=== PATIENT | female | born 1960 | race Caucasian/White ===

== ENCOUNTER 2022-01-16 10:11 | Outpatient (CLI) | payer BC, SELFPAY ==
[2022-01-16 18:59] LABS: Hematocrit 42.2 % (37.0-47.0); Hemoglobin 13.2 g/dL (12.0-15.0); Mean Corpuscular HGB Conc 31.3 g/dl (32-36); Mean Corpuscular Hemoglobin 29.1 pg (26-34); Mean Platelet Volume 12.2 fl (7.4-10.4); Platelet Count Result 233 k/mm3 (150-375); Red Blood Count 4.54 M/mm3 (4.2-5.4); Red Cell Distribution Width 14.7 % (11.5-14.5); White Blood Count 6.8 K/mm3 (4.5-10.0)
[2022-01-16 19:08] LABS: Alanine Aminotransferase 24 U/L (4-35); Albumin Level 4.2 g/dL (3.5-5.1); Alkaline Phosphatase 63 U/L (38-126); Anion Gap 4 mmol/L (8-16); Aspartate Amino Transferase 30 U/L (14-36); Bilirubin,Total 0.4 mg/dL (0.2-1.3); Blood Urea Nitrogen 21 mg/dL (7-17); Calcium 9.5 mg/dL (8.4-10.2); Carbon Dioxide 27 mmol/L (22-30); Chloride 107 mmol/L (98-107); Cholesterol 221 mg/dL (0-200); Estimated Glomerular Filt Rate > 60; Glucose 88 mg/dL (65-110); HDL Direct 47 mg/dL; Potassium 4.6 mmol/L (3.4-5.0); Sodium 138 mmol/L (137-145); Triglycerides 95 mg/dL (<150)
[2022-01-16 19:23] LABS: LDL Cholesterol Direct 141 mg/dL
[2022-01-16 20:18] LABS: Vitamin D 25 Hydroxy 91.6 ng/mL
[2022-01-16 20:30] LABS: Folic Acid > 20.0 ng/mL (2.76->20)
== END 2022-01-16 10:12 | disposition home or self-care (01) ==
PROVIDERS: PCP Family Medicine; Visit Provider Family Medicine
DX: Z00.00 Encounter for general adult medical examination without abnormal findings (principal); I10 Essential (primary) hypertension
CPT/HCPCS: 36415; 80053; 80061; 82306; 82607; 82746; 85027

== ENCOUNTER 2022-05-31 11:17 | Outpatient (CLI) | payer BC, SELFPAY ==
[2022-05-31 18:26] LABS: Appearance Urine Clear (Clear); Bilirubin Urine Negative (Negative); Color Urine Yellow (Yellow); Glucose Urine UA Negative (Negative); Ketones Urine Negative (Negative); Leukocyte Esterase Ur Negative LEU/UL (NEGATIVE); Nitrate Urine Negative (Negative); Protein Urine Negative (Negative); Urobilinogen Urine 0.2 mg/dL (<2.0)
[2022-05-31 18:31] LABS: Squamous Epithelial Cell Urine Rare /hpf (Few); WBC Urine 0-3 /hpf (0-3)
[2022-05-31 18:32] LABS: Add Urine Microscopic? YES; Blood Urine Trace-Intact (Negative)
== END 2022-05-31 11:18 | disposition home or self-care (01) ==
LOC: ANHBWCLAB 11:17
PROVIDERS: PCP Family Medicine; Visit Provider Family Medicine
DX: N30.90 Cystitis, unspecified without hematuria (principal)
CPT/HCPCS: 81001; 87086; 87088

== ENCOUNTER 2023-04-16 09:01 | Outpatient (CLI) | payer OTHER, SELFPAY ==
[2023-04-16 19:31] LABS: Hematocrit 43.3 % (37.0-47.0); Hemoglobin 13.3 g/dL (12.0-15.0); Mean Corpuscular HGB Conc 30.7 g/dl (32-36); Mean Corpuscular Hemoglobin 28.5 pg (26-34); Mean Corpuscular Volume 92.9 fl (80-100); Mean Platelet Volume 12.1 fl (7.4-10.4); Platelet Count Result 245 k/mm3 (150-375); Red Blood Count 4.66 M/mm3 (4.2-5.4); Red Cell Distribution Width 15.5 % (11.5-14.5); White Blood Count 7.4 K/mm3 (4.5-10.0)
[2023-04-16 19:55] LABS: Vitamin D 25 Hydroxy 71.7 ng/mL
[2023-04-16 20:41] LABS: Alanine Aminotransferase 36 U/L (6-35); Albumin Level 4.4 g/dL (3.5-5.1); Alkaline Phosphatase 61 U/L (38-126); Anion Gap 5 mmol/L (8-16); Aspartate Amino Transferase 54 U/L (14-36); Bilirubin,Total 0.5 mg/dL (0.2-1.3); Blood Urea Nitrogen 23 mg/dL (7-17); Calcium 9.5 mg/dL (8.4-10.2); Carbon Dioxide 32 mmol/L (22-30); Chloride 104 mmol/L (98-107); Cholesterol 243 mg/dL (0-200); Estimated Glomerular Filt Rate > 60; Glucose 88 mg/dL (65-110); HDL Direct 61 mg/dL; Potassium 4.2 mmol/L (3.4-5.0); Sodium 141 mmol/L (137-145); Triglycerides 98 mg/dL (<150)
[2023-04-16 20:52] LABS: LDL Cholesterol Direct 149 mg/dL
== END 2023-04-16 09:02 | disposition home or self-care (01) ==
LOC: ANHCATHLAB 09:04 → ANHBWCLAB 09:07
PROVIDERS: PCP Family Medicine; Visit Provider Family Medicine
DX: Z00.00 Encounter for general adult medical examination without abnormal findings (principal); I10 Essential (primary) hypertension; M81.0 Age-related osteoporosis without current pathological fracture; N30.90 Cystitis, unspecified without hematuria
CPT/HCPCS: 36415; 80053; 80061; 82306; 85027

== ENCOUNTER 2023-10-01 11:35 | Outpatient (CLI) | payer OTHER, SELFPAY ==
[2023-10-01 19:42] LABS: Hematocrit 40.3 % (37.0-47.0); Hemoglobin 12.7 g/dL (12.0-15.0); Mean Corpuscular HGB Conc 31.5 g/dl (32-36); Mean Corpuscular Hemoglobin 28.6 pg (26-34); Mean Corpuscular Volume 90.8 fl (80-100); Platelet Count Result 232 k/mm3 (150-375); Red Blood Count 4.44 M/mm3 (4.2-5.4); Red Cell Distribution Width 14.5 % (11.5-14.5); White Blood Count 7.3 K/mm3 (4.5-10.0)
[2023-10-01 20:26] LABS: Alanine Aminotransferase 24 U/L (6-35); Albumin Level 4.3 g/dL (3.5-5.1); Alkaline Phosphatase 69 U/L (38-126); Anion Gap 6 mmol/L (8-16); Aspartate Amino Transferase 30 U/L (14-36); Bilirubin,Total 0.4 mg/dL (0.2-1.3); Blood Urea Nitrogen 14 mg/dL (7-17); Calcium 9.5 mg/dL (8.4-10.2); Carbon Dioxide 28 mmol/L (22-30); Chloride 106 mmol/L (98-107); Estimated Glomerular Filt Rate > 60; Glucose 86 mg/dL (65-110); Potassium 4.1 mmol/L (3.4-5.0); Sodium 140 mmol/L (137-145)
[2023-10-01 20:27] LABS: Hepatitis B Surface Antigen Negative (Negative)
[2023-10-01 20:33] LABS: HAV RESULT Negative (Negative); Hepatitis B Core IgM Result Negative (Negative)
[2023-10-01 20:45] LABS: Hepatitis C Virus Antibody Negative (Negative)
== END 2023-10-01 11:36 | disposition home or self-care (01) ==
LOC: ANHBWCLAB 11:36
PROVIDERS: PCP Family Medicine; Visit Provider Family Medicine
DX: M81.0 Age-related osteoporosis without current pathological fracture (principal); R74.8 Abnormal levels of other serum enzymes; I10 Essential (primary) hypertension; Z00.00 Encounter for general adult medical examination without abnormal findings
CPT/HCPCS: 36415; 80053; 80074; 82248; 85027

== ENCOUNTER 2024-02-18 13:16 | Outpatient (CLI) | payer OTHER, SELFPAY ==
--- NOTE | ~2024-02-18 | XR_ITS ---
Clinical Indication: Dyspnea PA and lateral views of the chest: Comparison: None Findings: The lungs are clear, without evidence of focal consolidation or pleural effusion. Cardiome diastinal silhouette is within normal limits. Bones and soft tissues are unremarkable. Impression: Normal chest. Reviewed, dictated and finalized at location . Impression: Normal chest.
== END 2024-02-18 13:17 | disposition home or self-care (01) ==
LOC: ANHBWCIMG 13:18
PROVIDERS: PCP Family Medicine; Visit Provider Family Medicine
DX: R06.00 Dyspnea, unspecified (principal)
CPT/HCPCS: 36415; 71046; 84484

== ENCOUNTER 2024-02-18 13:26 | Outpatient (CLI) | payer OTHER, SELFPAY ==
[2024-02-18 19:48] LABS: Troponin I < 0.012 ng/mL (0.000-0.034)
== END 2024-02-18 13:27 | disposition home or self-care (01) ==
LOC: ANHBWCLAB 13:27
PROVIDERS: PCP Family Medicine; Visit Provider Family Medicine
DX: R25.2 Cramp and spasm (principal); R06.00 Dyspnea, unspecified
CPT/HCPCS: 36415; 84484

== ENCOUNTER 2025-08-01 07:58 | Outpatient (CLI) | payer OTHER, SELFPAY ==
--- NOTE | ~2025-08-01 | XR_ITS ---
EXAMINATION: XR hip BI 2V w AP pelvis, 08/01/2025 8:44 CDT HISTORY: M16.11 - Unilateral primary osteoarthritis, right hip COMPARISON: No comparisons available. Findings: No acute fracture or malalignment. Moderate to severe degenerative changes Soft tissues unremarkable. Impression: No acute fracture or malalignment. Reviewed, dictated and finalized at location P. Impression: No acute fracture or malalignment.
--- NOTE | ~2025-08-01 | CT_ITS ---
EXAMINATION: CT abdomen pelvis w con DATE: 08/01/2025 08:30 INDICATION: Abnormal findings on diagnostic imaging. TECHNIQUE: Computed tomography (CT) of the abdomen and pelvis was performed with 100 mL Omnipaque 350 intravenous contrast. Automated exposure control and iterative reconstruction technique were employed. The dose-length product was 466.43 mGy-cm. COMPARISON: None. FINDINGS: The visualized portions of the lung bases demonstrate mild atelectasis. No pleural effusion. The heart size is normal. No pericardial effusion. The liver, gallbladder, pancreas, and adrenal glands are normal. There is a 2.5 cm peripherally calcified hyperdense mass in the spleen. There is a 4 mm cyst in right kidney. There is a 2 mm stone in left kidney. The appendix is normal. There are no dilated loops of bowel. There are no pathologically enlarged lymph nodes. There is no free intraperitoneal fluid. There is severe right hip osteoarthritis. There is severe lower lumbar spondylosis. IMPRESSION: 1. 2.5 cm peripherally calcified hyperdense mass in the spleen. The differential diagnosis includes old hematoma, old infection, and chronic pseudoaneurysm. Comparison with noncontrast abdomen CT is recommended to exclude enhancement of the mass. Reviewed, dictated and finalized at location E. IMPRESSION: 1. 2.5 cm peripherally calcified hyperdense mass in the spleen. The differentia l diagnosis includes old hematoma, old infection, and chronic pseudoaneurysm. C omparison with noncontrast abdomen CT is recommended to exclude enhancement of the mass.
[2025-08-01 08:26] LABS: Estimated Glomerular Filt Rate > 60
== END 2025-08-01 07:59 | disposition home or self-care (01) ==
PROVIDERS: PCP Family Medicine; Visit Provider Nurse Practitioner Family
DX: R93.5 Abnormal findings on diagnostic imaging of other abdominal regions, including retroperitoneum (principal); K66.8 Other specified disorders of peritoneum; M16.11 Unilateral primary osteoarthritis, right hip
CPT/HCPCS: 73521; 74177; Q9967

== ENCOUNTER 2025-08-07 06:43 | Outpatient (CLI) | payer SELFPAY ==
--- NOTE | ~2025-08-07 | CT_ITS ---
EXAMINATION: CT abdomen wo adam, 08/07/2025 7:00 CDT HISTORY: R16.1 - Splenomegaly, not elsewhere classified COMPARISON: Comparison 08/01/2025. TECHNIQUE: CT scan of the abdomen was performed without contrast. One or more of the following dose reduction techniques were used: automated exposure control, adjustment of the mA and/or kV according to patient size, use of iterative reconstruction technique. Unless otherwise stated, incidental findings do not require dedicated follow up imaging FINDINGS: CT abdomen: LUNG BASES: The lung bases are clear. The visualized portions of the heart and pericardium are unremarkable. LIVER: Unremarkable, liver contours intact, no lesions. SPLEEN: The spleen is within normal limits for size, there is a large calcified splenic lesion measuring 2.4 x 2.5 cm.. KIDNEYS: Right Kidney: Unremarkable. No calculi. No hydronephrosis. Left Kidney: Left kidney lower pole 2 mm calculus, no hydronephrosis. ADRENAL GLANDS: Unremarkable. PANCREAS: Unremarkable. GALLBLADDER/BILIARY: Unremarkable. No biliary dilatation. STOMACH AND ESOPHAGUS: Visualized stomach and esophagus within normal limits. BOWEL/MESENTERY: Moderate fecal content, no colitis or diverticulitis. Mesentery and small bowel normal. Appendix normal. ADENOPATHY/RETROPERITONEUM: No lymphadenopathy. AORTA/VASCULATURE: Normal caliber aorta. FREE FLUID OR FREE AIR: None. VISUALIZED PELVIS: Unremarkable. OSSEOUS STRUCTURES: No acute osseous abnormality.No suspicious lesions. OVERLYING SOFT TISSUES: Unremarkable. IMPRESSION: 1. Nonspecific calcified splenic lesion possible calcified granuloma or hemangioma. Follow-up suggested to assess as clinically warranted Reviewed, dictated and finalized at location P. IMPRESSION: 1. Nonspecific calcified splenic lesion possible calcified granuloma or hemangi violeta. Follow-up suggested to assess as clinically warranted
--- OUTSIDE RECORDS SUMMARY | 2025-08-07 06:56 | XMS_ITS | Clinical Summary ---
Author Organization [facility] Address [address] [place] [address] Care Team Providers Care Aquatic Physiotherapist Name Role Phone Carlos Eduardo Jesus MD Primary Care Provider [phone] Carlos Eduardo Jesus MD Unavailable [phone] Allergies No known active allergies Medications diphenhydrAMINE (diphenhydrAMIN E) 25 mg capsule Take 1 tablet/capsu le (25 mg total) by mouth every 6 (six) hours as needed for itching 30 capsule 03/16/2019 Active Active Problems Problem Noted Date Diagnosed Date Encounter for screening colonoscopy 12/01/2019 Overview (12/01/2019): Added automatically from request for surgery [id number] History of colon polyps 12/01/2019 Overview (12/01/2019): Added automatically from request for surgery [id number] Pharyngitis 04/09/2015 Overview (01/18/2017): Pharyngitis Immunizations Immunization Administration Dates Next Due Influenza, Split 07/16/2013 Influenza, Trivalent, IM (MDV) 08/30/2011 Surgical History Surgery Date Site/Laterality Comments OTHER SURGICAL HISTORY 10/15/1973 - 10/14/1974 strabismus: ocular muscle surgery OTHER SURGICAL HISTORY 10/15/2004 - 10/14/2005 myopia: lasik POLYPECTOMY COLONOSCOPY 01/05/2017 Medical History Medical History Date Comments Hx Other Medical strabismus Hx Other Medical myopia Hx Other Medical Colon polyp Family History Medical History Relation Name Comments Coronary artery disease Father Brianna nary artery disease, premature; Diabetes type II Father Diabetes -T ype II; Coronary artery disease Mother Brianna nary artery disease; Breast cancer Sister Nadya Relation Name Status Comments Father Mother Sister Nadya Alive Social History Tobacco Use Types Packs/Day Years Used Date Smoking Tobacco: Former Smokeless Tobacco: Never Alcohol Use Standard Drinks/Week Comments No 0 (1 standard drink = 0.6 oz pur e alcohol) Comments No Sex and Gender Information Value Date Recorded Sex Assigned at Not on file Legal Sex Female 12:45 AM FOOD COUNSELOR Gender Identity Not on file Sexual Orientation Not on file Obstetrics History Para Term AB IAB SAB Ectopic Multiple Livin g Live Births 2 2 2 Date Outcome GA Total Labor Labor/2nd/3rd Weight Sex Type Anes PTL Jasmine A1 A5 Name Clin Term Term Last Filed Vital Signs Vital Sign Reading Time Taken Comments Blood Pressure 166/79 03/22/2020 10:00 AM CDT Pulse 75 03/22/2020 10:00 AM CDT Temperature 36.6 C (97.8 F) 03/22/2020 10:00 AM CDT Respiratory Rate 20 03/22/2020 10:00 AM CDT Oxygen Saturation 100% 03/22/2020 10:00 AM CDT Inhaled Oxygen Concentration - - Weight 73.5 kg (162 lb) 03/22/2020 7:48 AM CDT Height 162.6 cm (5' 4) 03/22/2020 7:48 AM CDT Body Mass Index 27.81 03/22/2020 7:48 AM CDT Plan of Treatment Health Maintenance Due Date Last Done Comments Cervical Cancer Screening 1960 Depression Screening 1960 Hepatitis C Screening 1960 DTaP/Tdap/Td Vaccine (1 - Tdap) 1972 Hepatitis B Screening 1979 Regular Well Visit/Exam 18-64 1979 Zoster Vaccine (2 of 3) 03/02/2022 01/05/2022 Breast Cancer Screening-Mammogram 09/12/2024 09/12/2023, 07/26/2022, 12/25/2019, Additional history exists Influenza Vaccine (#1) 2025 07/16/2013, 2010 Colon Cancer Screening-Colonoscopy 03/22/2030 03/22/2020, 01/05/2017, 12/13/2013 Colon Cancer Screening-CT Colonography Discontinued 03/22/2020, 01/05/2017, 12/13/2013 Colon Cancer Screening-DNA Stool Discontinued 03/22/2020, 01/05/2017, 12/13/2013 Colon Cancer Screening-FIT Discontinued 03/22, 01/05/2017, 12/13/2013 Colon Cancer Screening-Sigmoidoscopy Discontinued 03/22/2020, 01/05/2017, 12/13/2013 Pneumococcal vaccine <65 Aged Out No longer eligible based on patient's age to complete this topic Procedures Procedure Name Priority Date/Time Associated Diagnosis Comments SCREENING MAMMOGRAM BILATERAL W BILLIE Schedule Routine, Read Routine (OP Routine) 09/12/2023 4:39 PM FOOD COUNSELOR Screening mammogram, encounter for COLONOSCOPY 03/22/2020 8:21 AM CDT from Last 3 Months or Most Recently Relevant to Health Maintenance Results * Screening Mammogram Bilateral W Billie (09/12/2023 4:39 PM FOOD COUNSELOR) Anatomical Region Laterality Modality Breast Bilateral Mammography 09/12/2023 4:42 PM FOOD COUNSELOR Impressions 09/12/2023 4:42 PM FOOD COUNSELOR There is no mammographic evidence of malignancy. A 1 year screening mammogram is recommended. BI-RADS: 1 - Negative. The patient has been or will be contacted. The patient will be entered into a reminder system with a target due date of 1 year for her next mammogram. Electronically signed by: Monico Mathew M.D. Narrative 09/12/2023 4:42 PM FOOD COUNSELOR EXAMINATION: SCREENING MAMMOGRAM BILATERAL W BILLIE ORDERING HEALTHCARE PROVIDER: SELF SCREENING MAMMOGRAM HISTORY: Routine screening mammography. COMPARISON: 07/26/2022, 12/25/2019, 12/10/2018, 11/28/2017 TECHNIQUE: CC and MLO views of the bilateral breasts were obtained with digital technique using breast tomosynthesis with C view. Computer aided detection was utilized. FINDINGS: DENSITY: The tissue of the bilateral breasts is almost entirely fatty. BREASTS: There are no suspicious masses, suspicious calcifications, or other suspicious findings in either breast. There has been no suspicious interval change. us Self Screening Mammogram IMG MAMMO PROCEDURES Fi nal Result * COLONOSCOPY (03/22/2020 8:21 AM CDT) Anatomical Region Laterality Modality Other Narrative Procedure Note Zuly Rodriguez MD - 03/22/2020 8:[address] [facility] Patient Name: Joshua Haney Procedure Date: 03/22/2020 8:21 AM Date of : 1960 Admit Type: Outpatient Age: 59 Gender: Female Attending MD: Zuly Rodriguez M.D. Room: [facility] ENDOSCOPY ROOM 1 Note Status: Finalized Patient Profile: This is a 59 year old female. Patient had history of adenoma polyps in the past. Patient is here for screening. Noted the patient was having episodes of bleeding per rectum. Procedure: Colonoscopy Indications: Surveillance: Personal history of adenomatous polypson last colonoscopy 3 years ago, Last colonoscopy:December 2016 Referring MD: ELINOR Puri Providers: Zuly Rodriguez M.D. Impression: - Small external hemorrhoids found on perianalexam. - One 6 mm polyp in the transverse colon, removedwith a jumbo cold forceps. Resected and retrieved. - Four 2 to 3 mm polyps in the distal sigmoid colon, removed with a jumbo cold forceps. Resected and retrieved. - Internal hemorrhoids. Treated with thermaltherapy. Recommendation: - Await pathology results. - Repeat colonoscopy in 3 - 5 years for screening purposes. - Continue present medications. Medicines: Monitored Anesthesia Care Complications: No immediate complications. Estimated Blood Loss: Estimated blood loss: none. Procedure: Pre-Anesthesia Assessment: - Prior to the procedure, a History and Physical was performed, and patient medications and allergieswere reviewed. The patient's tolerance of previous anesthesia was also reviewed. The risks and benefitsof the procedure and the sedation options and riskswere discussed with the patient. All questions were answered, and informed consent was obtained. Prior Anticoagulants: The patient has taken no previous anticoagulant or antiplatelet agents. ASA Grade Assessment: II - A patient with mild systemicdisease. After reviewing the risks and benefits, the patientwas deemed in satisfactory condition to undergo the procedure. The benefits, risks and alternatives of theprocedure and sedation were discussed and informed consent was obtained. All questions were answered. Please referto the signed informed consent document in the medical record. The scope was passed under direct vision.The Pediatric Colonoscope PCF-H190L [id number] was introduced through the anus and advanced to the the cecum, identified by appendiceal orifice andileocecal valve. Bowel prep was administered using a splitdose. The bowel preparation used was Miralax. The bowel preparation used was bisacodyl tablets. The qualityof the bowel preparation was excellent. Findings: Small external hemorrhoids were found on perianal exam. The cecum appeared normal. The ascending colon appeared normal. A 6 mm polyp was found in the transverse colon. The polyp was semi-sessile. The polyp was removed with a jumbo cold forceps.Resection and retrieval were complete. The descending colon was normal Four semi-sessile polyps were found in the distal sigmoid colon andthe rectum. The polyps were 2 to 3 mm in size. These polyps were removed with a jumbo cold forceps. Resection and retrieval were complete. Internal hemorrhoids were found during retroflexion. The hemorrhoids were medium-sized. Coagulation to prevent future bleeding of internal hemorrhoids using IRC (Infrared Coagulation) was successful. Electronically signed by Zuly Rodriguez M.D. Zuly Rodriguez M.D. 03/22/2020 9:39:53 AM Number of Addenda: 0 Note Initiated On: 03/22/2020 8:21 AM Procedure Code(s): --- Professional --- 37385, Colonoscopy, flexible; with biopsy, single or multiple 01077, 59, Destruction of internal hemorrhoid(s) by thermal energy(eg, infrared coagulation, cautery, radiofrequency) Diagnosis Code(s): --- Professional --- Z86.010, Personal history of colonic polyps K64.8, Other hemorrhoids D12.3, Benign neoplasm of transverse colon (hepatic flexure orsplenic flexure) D12.5, Benign neoplasm of sigmoid colon CPT copyright 2017 [employer]. All rights reserved. The codes documented in this report are preliminary and upon home care assistant reviewmay be revised to meet current compliance requirements. Recognized by the [employer] for promoting quality in endoscopy Zuly Rodriguez MD ENDOSCOPY PROCEDURES Final Result from Last 3 Months or Most Recently Relevant to Health Maintenance Insurance [facility] CHOICE OOS Member Subscriber Plan / Payer (Ef fective 2019-Present) Name:Joshua Haney Relation to Subscriber:Self Name:Johsua Haney Payer ID:[id number] ([facility]) Type:[employer] Address: [address] OPTIONS PPO [facility] CHOICE OOS BLUE ACCESS OOS Advance Directives For more information, please contact: [phone] * Full Code (Latest Code Status on File) Date Activated Date Inactivated Comments 03/22/2020 7:47 AM 03/22/2020 2:20 PM * Full Code Date Activated Date Inactivated Comments 03/22/2020 7:47 AM 03/22/2020 7:47 AM Care Teams Aquatic Physiotherapist Relationship Specialty Start Date End Date Carlos Eduardo Jesus MD PCP - General Family Practice 08/24/22 Carlos Eduardo Jesus MD 08/24/22
--- OUTSIDE RECORDS SUMMARY | 2025-08-07 06:56 | XMS_ITS | Encounter Summary ---
Author Organization [facility] Address [address] [place] [address] Care Team Providers Care Chief Counsel Name Role Phone Carlos Eduardo Jesus MD Primary Care Provider [phone] Carlos Eduardo Jesus MD Primary Care Provider [phone] Carlos Eduardo Jesus MD Unavailable [phone] Reason for Visit * Reason Onset Date Comments Appointment Reminder Call 07/25/2022 Confir med Encounter Details Date Type Department Care Team (Late st Contact Info) Description 07/25/2022 Telephone [facility] [address] [place] [id number] Yumiko Carrasco RT Appointment Reminder Call (Confirmed ) Social History Tobacco Use Types Packs/Day Years Used Date Smoking Tobacco: Former Smokeless Tobacco: Never Alcohol Use Standard Drinks/Week Comments No 0 (1 standard drink = 0.6 oz pur e alcohol) Comments No Sex and Gender Information Value Date Recorded Sex Assigned at Not on file Legal Sex Female 12:45 AM CONVERTIBLE SOFA 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
== END 2025-08-07 06:44 | disposition home or self-care (01) ==
PROVIDERS: PCP Family Medicine; Visit Provider Nurse Practitioner Family
DX: D73.89 Other diseases of spleen (principal); R16.1 Splenomegaly, not elsewhere classified
CPT/HCPCS: 74150

== ENCOUNTER 2025-09-01 11:55 | Outpatient (CLI) | payer OTHER, SELFPAY ==
--- NOTE | 2025-09-01 12:52 | ECG_ITS ---
Test Date: 2025-09-01 13:14:00 Measurements Intervals Silvis Rate: 70 P: 54 CA: 143 QRS: 48 QRSD: 82 T: 43 QT: 396 QTc: 430 Interpretive Statements SINUS RHYTHM NORMAL ECG Electronically Signed On 09-01-2025 15:59:41 COURTESY VAN DRIVER by Monico Last M.D.
[2025-09-01 14:09] LABS: Albumin Level 4.6 g/dL (3.5-5.1); Estimated Glomerular Filt Rate > 60; Glucose 77 mg/dL (65-110)
[2025-09-01 14:24] LABS: Hematocrit 37.8 % (37.0-47.0); Hemoglobin 12.2 g/dL (12.0-15.0); Immature Granulocyte Percent A 0.3 % (0-0.5); Lymphocytes Absolute Auto 3.77 K/mm3 (0.9-3.2); Mean Corpuscular HGB Conc 32.3 g/dl (32-36); Mean Corpuscular Hemoglobin 29.3 pg (26-34); Mean Corpuscular Volume 90.9 fl (80-100); Nucleated Red Blood Cells Absolute Auto 0.000 K/mm3 (0.0-0.012); Nucleated Red Blood Cells Perc 0.0 % (0.0-0.2); Platelet Count Result 261 k/mm3 (150-375); Red Blood Count 4.16 M/mm3 (4.2-5.4); White Blood Count 10.8 K/mm3 (4.5-10.0)
[2025-09-01 15:27] LABS: MRSA (PCR) NOT DETECTED (NOT DETECTE)
[2025-09-01 16:18] LABS: Hemoglobin A1C 5.5 % (<5.7)
== END 2025-09-01 11:56 | disposition home or self-care (01) ==
LOC: ANHSURGERY 11:58
PROVIDERS: PCP Family Medicine; Visit Provider Orthopaedic Surgery
DX: M16.11 Unilateral primary osteoarthritis, right hip (principal); Z01.818 Encounter for other preprocedural examination
CPT/HCPCS: 80307; 82040; 82565; 82947; 83036; 85025; 87641; 93005

== ENCOUNTER 2025-09-14 01:53 | Day surgery (SDC) | payer OTHER, SELFPAY ==
[2025-09-01 12:14] VITALS: BP 148/61; PULSE 69; RESP 16; TEMP 36.9; O2SAT 98; BMI 27.6
--- NOTE | 2025-09-01 12:43 | PC.NURSE ---
[facility] has started construction of its new state of the art ER which will open Spring 2026. With this, we anticipate parking may be a challenge for some our surgical patients and families. Parking spaces are limited but are available for all Surgical, obstetrics, and ER patients sharing this lot. If you arrive and find you are having a hard time finding a parking space, please note that we understand the challenges, please drive around the hospital and park near Hospital Entrance 1. When you enter this entrance, you can ask a volunteer to direct or take you back to the surgical waiting area to check in. We appreciate everyone?s understanding of these expected challenges while we build for your future. Report to the Outpatient Waiting Room, entrance under the green pavilion located off [address], at time __06:00am on date _09/14/25 . Planned Procedure Time: _07:30am .? Time changes happen often and if your time is changed the preop area will call you the afternoon before. - You and your visitor will be asked to self-screen and do not enter if you have any COVID symptoms. Please call surgeon if you need to reschedule. - A mask is optional within the hospital at this time. Patients may have clear liquids (water, carbonated beverages, clear teas, apple juice) until 3 hours prior to surgery with a maximum of 20 ounces. - No food from midnight until time of surgery and no smoking, or chewing tobacco (or any form of nicotine). No chewing gum, candy or mints. (04:30am) Take only the following medications with a SIP of water on the morning of surgery: ____Buspirone and Tylenol if needed DO NOT STOP ANY OF YOUR OTHER PRESCRIPTION MEDICATIONS PRIOR TO SURGERY EXCEPT THE FOLLOWING Hold all vitamins and supplements for 3 days per anesthesiologist. Date of last dose is 09/10/25. Medications to discontinue per physician ____NONE Date to take last dose NONE Please no make-up, nail malaysian, hairspray, perfume, deodorant, or body powder the day of surgery.? No jewelry (including any body piercings) or valuables the day of surgery, leave them at home.? Please take a shower or bath the night before & the morning of, surgery with an antibacterial soap.? Wear comfortable, loose fitting clothing.? Bring overnight bag, walker, good shoes,cell phone. - Jewelry must be removed prior to entering the operating room.? Rings and piercings that are not removed may be cut off. - The hospital will not accept responsibility for valuables.? - Please leave all valuables, including medications, at home the day of surgery. If you are going home after surgery, a licensed long haul truck driver must drive you home.? - NO public transportation without another adult if you receive anesthesia. - We recommend that an adult stay with you for 24 hours following discharge. - We also recommend that you do not drive, make important decision, drink alcoholic beverages, or take any drugs that were not prescribed by your health care provider for at least 24 hours after your discharge time. Follow any additional instructions given to you from your surgeon. Telephone instructions given to ____Patient and Daughter and asked if any additional questions and then verbalized understanding. Patient advised to call surgeon office or pre surgery nurse liaison [phone] if any additional questions.
--- NOTE | 2025-09-08 11:10 | PM.IMHP ---
H&P: HPI History of Present Illness Date/Time: 09/08/25 11:10 Chief Complaint: Patient has right-sided hip pain. She has [id number] arthritis of her right hip. She has failed conservative treatment like to consider surgical intervention. She would like to have a hip replacement. Review of Systems Musculoskeletal: Musculoskeletal: Reports arthralgias, Reports joint swelling and Reports stiffness Neurologic: Reports abnormal gait [facility] Past Medical History Medical History Osteopenia Hypertension Surgical History Surgical History Previous section x2 Family History Family History Father Lung cancer Emphysema of lung Sibling Breast cancer Dx age 58 Mother Depression Social History Social History (Updated 07/23/25 @ 10:43 by Kerrie Pickett CMA) Smoking packs per day: 1.5 Smoking cigarettes per day: 30.0 Years smoked: 15 Smoking pack-years: 22.50 Smoking status: Former smoker Tobacco type: cigarettes Smoking end date: 10/15/98 Additional smoking assessment comments: Denies any nicotine in system today Alcohol intake: current Alcohol use details: 1-2 per month Substance use: current Substance use type: marijuana Other substance usage details: uses it daily smokes it and eats it daily Lack of Transportation: No Lack of Food: Never True Current Housing: I Have Housing Concerned About Future Housing: No Difficulty Paying Gas/Electric Bills: No Difficulty Paying for Meds: No Currently Unemployed: No Education: High School Diploma/GED Difficulty w/ Childcare or Family Care: No Living arrangements: with family Additional living arrangements comments: Daughter Chanel Gender identity (if verbalized by the patient): Female Spiritual care concerns: No Agree to blood products: Yes Meds Home Medications and Allergies Home Medications ?Medication ?Instructions ?Recorded ?Confirmed ?Type buspirone 7.5 mg tablet 7.5 mg PO DAILY #90 tabs 04/23/25 09/01/25 Rx acetaminophen 500 mg capsule 1,000 mg (2 x 500 mg) PO Q6H PRN 07/10/25 09/01/25 Rx pain #240 caps lisinopril 20 mg tablet 20 mg PO DAILY #90 tabs 10/07/25 11/18/25 Rx multivitamin (Daily Multi-Vitamin 1 tablet PO DAILY 09/01/25 09/01/25 History tablet) Allergies Allergy/AdvReac Type Severity Reaction Status Date / Time No Known Allergies Allergy Verified 09/01/25 12:09 Exam Narrative: Patient has very limited motion of her right hip. She has internal rotation 0 external rotation about 30 grinding crepitus and pain with manipulation she has a positive Stinchfield test and pain with activity. She walks with an antalgic gait. Eyes: General: appearance normal, both eyes and all related structures Neck: Neck: supple Resp: Effort & Inspection: normal respiratory effort Cardio: Rate: regular rate Rhythm: regular rhythm Radiology Reports: Comments: XRay Report Signed Patient: Joshua Haney EXAMINATION: XR hip BI 2V w AP pelvis, 08/01/2025 8:44 CDT HISTORY: M16.11 - Unilateral primary osteoarthritis, right hip COMPARISON: No comparisons available. Findings: No acute fracture or malalignment. Moderate to severe degenerative changes Soft tissues unremarkable. Impression: No acute fracture or malalignment. Reviewed, dictated and finalized at location P. Abdomen CT 08/07/25 Hip/Pelvis X-Ray 08/01/25 Assessment and Plan Assessment and plan (1) Osteoarthritis of right hip: Code(s): M16.11 - Unilateral primary osteoarthritis, right hip Status: Acute Assessment and Plan: Patient's hip pain right. She has [id number] arthritis of her hip and has failed conservative treatment. She would like to consider hip replacement surgery. I discussed the risks, benefits, limitations, and alternatives with the patient in detail. She understands and agrees would like to proceed. Will proceed per her request with right total hip arthroplasty.
--- OUTSIDE RECORDS SUMMARY | 2025-09-14 01:58 | XMS_ITS | Clinical Summary ---
Author Organization [facility] Address [address] [place] [address] Phone Care Team Providers Care Generator Worker Name Role Phone Carlos Eduardo Jesus MD Primary Care Provider [phone] Allergies No known active allergies Medications conjugated estrogens (PREMARIN) 0.625 MG/GM CreamIndications :Urethritis,Dysp areunia in female,Vaginal dryness Once daily for 21 days, then off for 7 days. 42.5 g 3 8 Active Additional Information Patient not taking.Reported on 09/11/2025 Vaginal Lubricant (REPLENS) Gel by Vaginal route. Active otherIndications :AH YES suppository by Other route. Indications: AH YES suppository Active lisinopril (PRINIVIL, ZESTRIL) 20 MG Tablet Take 20 mg by mouth daily. Active busPIRone HCl 7.5 MG Tablet Take 1 Tablet by mouth daily. Active sulfamethoxazole -trimethoprim DS (Bactrim DS) 800-160 MG TabletIndication s:Acute cystitis with hematuria Take 1 Tablet by mouth 2 times daily for 3 days. 6 Tablet 5 09/14/20 25 Active Active Problems Problem Noted Date Diagnosed Date Hypertension 09/11/2025 Encounters Date Type Department Care Team Description 09/13/2025 Telephone [facility] [address] [place] [id number] Carlos Eduardo Jesus MD Advice Only 09/12/2025 [facility] [address] [place] [address] Robson Clarke, PAC POCT UA AUTOMATED W/O MICRO, CULTURE, URINE 09/11/2025 3:30 PM FRAMING MILL OPERATOR HELPER [facility] [address] [place] [address] Kristina Reina, FRONT LINE LEADER, MEDICAL GENETICIST Acute cystitis with hematuria (Primary Dx); Dysuria; Pain of left great toe Discharge Disposition: Discharged to home or Selfcare 09/11/2025 Travel from Last 3 Months Immunizations Immunization Administration Dates Next Due Covid-19, Mrna, Lnp-s, Pf, 30 Mcg/0.3 Ml Dose (P fizer) 02/11/2021,01/14/2021 Influenza Vaccine, MDCK,quadrivalent, pres free 10/01/2023 Influenza, Seasonal, Injectable, Undefined 08/30 RSV, Recombinant, Protein Gooden bunit Rsvpref, Adjuvant Recon (Arexvy) 10/01/2023 Zoster Vaccine Recombinant 06/28/2022 Zoster Vaccine, live 01/05/2022 Family History Medical History Relation Name Comments Heart Attack Father Lung Cancer Father Heart Disease Mother Breast Cancer Sister Relation Name Status Comments Father Mother Sister Social History Tobacco Use Types Packs/Day Years Used Date Smoking Tobacco: Former Cigarettes 0 Q uit: 09/13/1998 Smokeless Tobacco: Never Tobacco Cessation:Counseling Given: No Alcohol Use Standard Drinks/Week Comments Yes 0 (1 standard drink = 0.6 oz pur e alcohol) occasionally Sexually Active Control Partners Comments Never Male Comments No Sex and Gender Information Value Date Recorded Sex Assigned at Not on file Legal Sex Female 11:55 PM CDT Gender Identity Not on file Sexual Orientation Not on file Last Filed Vital Signs Vital Sign Reading Time Taken Comments Blood Pressure 134/68 09/11/2025 3:37 PM FRAMING MILL OPERATOR HELPER Pulse 93 09/11/2025 3:37 PM FRAMING MILL OPERATOR HELPER Temperature 36.8 C (98.3 F) 09/11/2025 3:37 PM FRAMING MILL OPERATOR HELPER Respiratory Rate 16 09/11/2025 3:37 PM FRAMING MILL OPERATOR HELPER Oxygen Saturation 99% 09/11/2025 3:37 PM FRAMING MILL OPERATOR HELPER Inhaled Oxygen Concentration - - Weight 72.6 kg (160 lb) 12/12/2024 9:26 AM FRAMING MILL OPERATOR HELPER Height 162.6 cm (5' 4) 12/12/2024 9:26 AM FRAMING MILL OPERATOR HELPER Body Mass Index 27.46 12/12/2024 9:26 AM FRAMING MILL OPERATOR HELPER Plan of Treatment Health Maintenance Due Date Last Done Comments Hepatitis C Virus (HCV) Screening 1960 TdaP Immunization 1960 Pap Smear 1982 Cervical Cancer Screening (CCS) 1991 HPV/Cotest 1991 Cologuard 2006 Immunochemical Fecal Occult Blood 2006 Pneumococcal Immunization (50+ years) (1 of 1 - PCV) 2011 Zoster Immunization (3 of 3) 08/23/2022 06/28/2022, 01/05/2022 Mammogram 09/12/2024 09/12/2023, 07/15, 12/25/2019, Additional history exists Influenza Immunization (#1) 2025 10/01/2023, 1 10/30/2010 SARS-COV-2 Immunization ( season) 2025 10/25/2023, 02/11/2021, 01/14/2021 Colonoscopy 03/22/2030 03/22/2020 Colorectal Cancer Screening 03/22/2030 Respiratory Syncytial Virus (RSV) Immunization (Adult) Completed 10/01/2023 Hepatitis B Immunization Aged Out No longer eligible based on patient's age to complete this topic Human Papillomavirus (HPV) Immunization Aged Out No longer eligible based on patient's age to complete this topic Meningococcal Immunization (ACWY) Aged Out No longer eligible based on patient's age to complete this topic Rotavirus Immunization Aged Out No lo nger eligible based on patient's age to complete this topic Procedures Procedure Name Priority Date/Time Associated Diagnosis Comments CULTURE, URINE Routine 09/11/2025 3:49 PM FRAMING MILL OPERATOR HELPER Dysuria POCT UA AUTOMATED W/O MICRO Routine 09/11/2025 3:33 PM FRAMING MILL OPERATOR HELPER Dysuria from Last 3 Months Results * CULTURE, URINE (09/11/2025 3:49 PM FRAMING MILL OPERATOR HELPER) Pathologist [facility] CULTURE RESULTS KLEBSIELLA PNEUMONIAE 09/13/2025 3:20 PM FRAMING MILL OPERATOR HELPER [facility] Culture URINE SPECIMEN OBTAINED BY CLEAN CATCH PROCEDURE / Unknown Non-Phlebotomy Collection / Unknown 09/11/2025 3:49 PM FRAMING MILL OPERATOR HELPER 09/11/2025 3:49 PM FRAMING MILL OPERATOR HELPER Narrative Organism Antibiotic Method Susceptibility Klebsiella pneumoniae Ampicillin/sulbactam [facility] VITEK II 4 mcg/ml: Susceptible Klebsiella pneumoniae Cefazolin [facility] VITEK II <16 mcg/ml: Susceptible Klebsiella pneumoniae Cefepime [facility] VITEK II <=0.12 mcg/ml: Susceptible Klebsiella pneumoniae Ceftriaxone [facility] VITEK II <=0.25 mcg/ml: Susceptible Klebsiella pneumoniae Gentamicin [facility] V[facility]K II <=1 mcg/ml: Susceptible Klebsiella pneumoniae Levofloxacin [facility] VITEK II <=0.12 mcg/ml: Susceptible Klebsiella pneumoniae Meropenem [facility] V[facility]K II <=0.25 mcg/ml: Susceptible Klebsiella pneumoniae Nitrofurantoin [facility] VITEK II 64 mcg/ml: Intermediate Klebsiella pneumoniae Piperacillin/Tazobactam [facility] VIT EK II <=4 mcg/ml: Susceptible Klebsiella pneumoniae Trimeth/Sulfamethoxazole [facility] GARRETT II <=20 mcg/ml: Susceptible us Kristina Reina FRONT LINE LEADER, MEDICAL GENETICIST MICROBIOLOGY - GENE RAL ORDERABLES Final Result Performing Organization Address City/State/[facility] Co de Phone Number [facility] [address] [place] [address], [place] * (ABNORMAL) POCT UA AUTOMATED W/O MICRO (09/11/2025 3:33 PM FRAMING MILL OPERATOR HELPER) POC UA SPECIFIC GRAVITY 1.025 URINE PH 6.0 5.0 - 9.0 POC URINE LEUKOCYTES Negative Negative Lucina/uL POC URINE NITRITE Positive(A) Negative POC URINE PROTEIN Negative Negative mg/dL POC URINE GLUCOSE Negative Negative, Norm mg/dL POC URINE KETONE Negative Negative mg/dL POC URINE UROBILINOGEN Norm Norm, 0.2 E.U./dL (mg/dL), 1 E.U./dL (mg/dL) POC URINE BILIRUBIN Negative Negative mg/dL POC URINE BLOOD INSTRUMENT 50 Rahul/uL(A) Negative Rahul/uL POC URINE COLOR Light Yellow POC URINE CLARITY Clear Urine 09/11/2025 3:33 PM FRAMING MILL OPERATOR HELPER us Kristina Reina FRONT LINE LEADER, MEDICAL GENETICIST POINT OF CARE TESTI NG (MANUAL) Final Result from Last 3 Months Care Teams Generator Worker Relationship Specialty Start Date End Date Carlos Eduardo Jesus MD PCP - General Family Medicine 05/23/22
--- OUTSIDE RECORDS SUMMARY | 2025-09-14 01:58 | XMS_ITS | Encounter Summary ---
Author Organization [facility] Address [address] [place] [address] Care Team Providers Care Chicken Vaccinator Name Role Phone Carlos Eduardo Jesus MD Primary Care Provider [phone] Carlos Eduardo Jesus MD Primary Care Provider [phone] Carlos Eduardo Jesus MD Unavailable [phone] Reason for Visit * Reason Onset Date Comments Appointment Reminder Call 07/25/2022 Confir med Encounter Details Date Type Department Care Team (Late st Contact Info) Description 07/25/2022 Telephone [facility] [address] [place] [id number] Yumiko Carrasco RT Appointment Reminder Call (Confirmed ) Social History Tobacco Use Types Packs/Day Years Used Date Smoking Tobacco: Former Smokeless Tobacco: Never Alcohol Use Standard Drinks/Week Comments No 0 (1 standard drink = 0.6 oz pur e alcohol) Comments No Sex and Gender Information Value Date Recorded Sex Assigned at Not on file Legal Sex Female 12:45 AM SALES FLOOR TEAM MEMBER Gender Identity Not on file Sexual Orientation Not on file documented as of this encounter Plan of Treatment Not on file documented as of this encounter Visit Diagnoses Not on filedocumented in this encounter Care Teams Chicken Vaccinator Relationship Specialty Start Date End Date Carlos Eduardo Jesus MD PCP - General 05/31/22 08/23/22 Carlos Eduardo Jesus MD PCP - General Family Practice 08/24/22 Carlos Eduardo Jesus MD 08/24/22 documented as of this encounter
--- OUTSIDE RECORDS SUMMARY | 2025-09-14 01:58 | XMS_ITS | Encounter Summary ---
Author Organization [facility] Address [address] [place] [address] Phone Care Team Providers Care Aerodynamicist Name Role Phone Carlos Eduardo Jesus MD Primary Care Provider [phone] Encounter Details Date Type Department Care Team (Late st Contact Info) Description 09/12/2025 Results Follow-Up [facility] - [address] [phone] Robson Clarke, KENDRA [address] [id number] POCT UA AUTOMATED W/O MICRO, CULTURE, URINE Social History Tobacco Use Types Packs/Day Years Used Date Smoking Tobacco: Former Cigarettes 0 Q uit: 09/13/1998 Smokeless Tobacco: Never Alcohol Use Standard Drinks/Week Comments Yes 0 (1 standard drink = 0.6 oz pur e alcohol) occasionally Sexually Active Control Partners Comments Never Male Comments No Sex and Gender Information Value Date Recorded Sex Assigned at Not on file Legal Sex Female 11:55 PM CDT Gender Identity Not on file Sexual Orientation Not on file documented as of this encounter Miscellaneous Notes * Telephone Encounter - Jackie Resendiz RN - 09/13/2025 6:14 PM CST Situation: Results Background: Patient contacting [facility] Assessment: Patient was seen at 09/11/2025 and had urine/ Culture. Per provider's notes: Result Note Please call patient, her bacteria is susceptible to her Bactrim, finish all antibiotic, follow instructions given at time of visit, see primary care provider if not better, thank you Recommendation: Patient agreeable. She is having surgery tomorrow and states provider had told her to hold last dose until she go to the hospital Patient agreeable to taking last dose of Bactrim tonight. ICE UNIT OPERATOR OIL WELL documented in this encounter Plan of Treatment Not on file documented as of this encounter Visit Diagnoses Not on filedocumented in this encounter Care Teams Aerodynamicist Relationship Specialty Start Date End Date Carlos Eduardo Jesus MD PCP - General Family Medicine 05/23/22 documented as of this encounter
--- OUTSIDE RECORDS SUMMARY | 2025-09-14 01:58 | XMS_ITS | Clinical Summary ---
Author Organization [facility] Address [address] [place] [address] Care Team Providers Care Ply Splicer Name Role Phone Carlos Eduardo Jesus MD Primary Care Provider [phone] Carlos Eduardo Jesus MD Unavailable [phone] Allergies No known active allergies Medications diphenhydrAMINE (diphenhydrAMIN E) 25 mg capsule Take 1 tablet/capsu le (25 mg total) by mouth every 6 (six) hours as needed for itching 30 capsule 03/16/2019 Active Active Problems Problem Noted Date Diagnosed Date Encounter for screening colonoscopy 12/01/2019 Overview (12/01/2019): Added automatically from request for surgery [id number] History of colon polyps 12/01/2019 Overview (12/01/2019): Added automatically from request for surgery [id number] Pharyngitis 04/09/2015 Overview (01/18/2017): Pharyngitis Immunizations Immunization [...] on file Legal Sex Female 12:45 AM GOODYEAR WELTER Gender Identity Not on file Sexual Orientation [...] Read Routine (OP Routine) 09/12/2023 4:39 PM GOODYEAR WELTER Screening mammogram, encounter for COLONOSCOPY 03/22/2020 8:21 AM CDT from Last 3 Months or Most Recently Relevant to Health Maintenance Results * Screening Mammogram Bilateral W Billie (09/12/2023 4:39 PM GOODYEAR WELTER) Anatomical Region Laterality Modality Breast Bilateral Mammography 09/12/2023 4:42 PM GOODYEAR WELTER Impressions 09/12/2023 4:42 PM GOODYEAR WELTER There is no mammographic evidence of malignancy. A 1 year screening mammogram is recommended. BI-RADS: 1 - Negative. The patient has been or will be contacted. The patient will be entered into a reminder system with a target due date of 1 year for her next mammogram. Electronically signed by: Monico Mathew M.D. Narrative 09/12/2023 4:42 PM GOODYEAR WELTER EXAMINATION: SCREENING MAMMOGRAM BILATERAL W BILLIE ORDERING [...] Rodriguez MD - 03/22/2020 8:21 AM CDT [facility] Patient Name: Joshua Haney Procedure Date: 03/22/2020 8:21 AM Date of : 1960 Admit Type: Outpatient Age: 59 Gender: Female Attending MD: Zuly Rodriguez M.D. Room: [facility] RO[facility] 1 Note Status: Finalized Patient [...] passed under direct vision.The Pediatric Colonoscope [id number]-[id number] was introduced through the anus and advanced [...] 8:21 AM Procedure Code(s): --- Professional --- 37434, Colonoscopy, flexible; with biopsy, single or multiple 16678, 59, Destruction of internal hemorrhoid(s) by thermal energy(eg, infrared coagulation, cautery, radiofrequency) Diagnosis Code(s): --- Professional --- Z86.010, Personal history of colonic polyps K64.8, Other hemorrhoids D12.3, Benign neoplasm of transverse colon (hepatic flexure orsplenic flexure) D12.5, Benign neoplasm of sigmoid colon CPT copyright 2017 [employer]. All rights reserved. The codes documented in this report are preliminary and upon hardware technician reviewmay be revised to meet current compliance requirements. Recognized by the [employer] for promoting quality in endoscopy Zuly Rodriguez MD ENDOSCOPY PROCEDURES Final Result from Last 3 Months or Most Recently Relevant to Health Maintenance Insurance [facility] CHOICE OOS Member Subscriber Plan / Payer (Ef fective 2019-Present) Name:Joshua Haney Relation to Subscriber:Self Name:Joshua Haney Payer ID:[id number] ([facility]) Type:[place] Address: [address] OPTIONS PPO [facility] CHOICE OOS BLUE ACCESS OOS Advance Directives For more information, please contact: [phone] * Full Code (Latest Code Status on File) Date Activated Date Inactivated Comments 03/22/2020 7:47 AM 03/22/2020 2:20 PM * Full Code Date Activated Date Inactivated Comments 03/22/2020 7:47 AM 03/22/2020 7:47 AM Care Teams Ply Splicer Relationship Specialty Start Date End Date Carlos Eduardo Jesus MD PCP - General Family Practice 08/24/22 Carlos Eduardo Jesus MD 08/24/22
[2025-09-14 06:10] VITALS: BP 147/63; PULSE 83; RESP 16; TEMP 36.4; O2SAT 100
--- NOTE | 2025-09-14 06:43 | PM.PNORT ---
Progress Note: A&P Assessment and Plan (1) Osteoarthritis of right hip: Code(s): M16.11 - Unilateral primary osteoarthritis, right hip Status: Acute Assessment and Plan: Will hold surgery for now. Needs evaluation of dysvascular left foot. Has had pain and symptoms for 10 days. Will send patient to ER. (2) Vascular disease, peripheral: Code(s): I73.9 - Peripheral vascular disease, unspecified Status: Acute Subjective Subjective Date/Time Seen: 09/14/25 06:43 Principal diagnosis: Patient has a nearly pulseless left foot. Review of Systems Musculoskeletal: Musculoskeletal: Reports abnormal gait, Reports myalgias, Reports arthralgias and Reports limited range of motion Exam Narrative: Patient has 10 days of a painful foot. Left foot is whiter than her RIGHT foot. Unable to obtain dorsal pulse. Minimal Posterior Tibial pulse on doppler. Const: General: uncomfortable Resp: Effort & Inspection: normal respiratory effort Cardio: Rate: regular rate Rhythm: regular rhythm Objective Data Meds/Results Medications: Active Medications Generic Name Dose Route Start Last Admin Trade Name Freq PRN Reason Stop Dose Admin Vancomycin HCl 1,000 mg/ 250 mls @ 250 mls/hr 09/14/25 06:10 Sodium Chloride IVPB 09/14/25 07:09 ONCE ONE
--- NOTE | 2025-09-14 07:10 | SUR.PREOP ---
Patient notified RN upon arrival of potential issue with left foot. Upon assessment, with left foot dangling off stretcher, left foot is completely pale with absent capillary refill; RN unable to palpate posterior tibial or pedal pulse. Patient states foot is extremely painful to touch. A very faint left posterior tibial pulse was located with the doppler, but still no left pedal pulse found even with doppler. Dr. Swanson notified and at bedside to assess. MD also unable to locate pedal pulse in left foot with doppler. After change of position, to lying, left foot has slight return of color and first two toes began to turn purple; very slow capillary refill noted, but present. Per MD patient surgery is cancelled and patient needs to proceed to ER. Patient to ER via wheelchair by this RN and Nurse Bulk Truck Driver.
== END 2025-09-14 07:03 | disposition home or self-care (01) ==
PROVIDERS: PCP Family Medicine; Visit Provider Orthopaedic Surgery
PROC: (CPT 27130; principal; 2025-09-14 07:30)
DX: M16.11 Unilateral primary osteoarthritis, right hip (principal); I73.9 Peripheral vascular disease, unspecified; Z53.09 Procedure and treatment not carried out because of other contraindication
CPT/HCPCS: 99214; G0463

== ENCOUNTER 2025-09-14 07:00 | Emergency (ER) | payer OTHER, SELFPAY ==
[2025-09-14] VITALS (24 sets, daily range): BP systolic 128–169; BP diastolic 55–68; PULSE 91–94; RESP 18–20; TEMP 36.6; O2SAT 95–100
--- NOTE | ~2025-09-14 | CT_ITS ---
Examination: CTA abd aorta runoff Clinical History: poor circulation to bilateral feet xweeks Technique: Helical images lung bases to feet IV contrast information not listed in PACS Coronal, sagittal reformats. Multiplanar MIPS CT images acquired with automatic exposure control for dose reduction DLP: 993 mGy-cm Comparison: None Findings: CTA Findings: Abdominal aorta: No aneurysm or dissection. Atherosclerotic disease. Celiac: Patent. SMA: Ostial stenosis. KARLA: Patent. Renal arteries: Stenoses. Common iliac arteries: Atherosclerotic disease but patent without stenosis. External iliac arteries: Patent. Hypogastrics: Patent. CFAs: Patent. SFAs: Bilateral distal stenoses, left side severe. Profundas: Patent. Popliteal arteries: Patent. Runoff: Difficult to assess given small size and poor contrast opacification. Non-CTA findings: Lung bases: Clear. Visualized heart and pericardium: Unremarkable. Liver: Steatosis. Gallbladder: Unremarkable. Spleen: Rim calcified lesion, statistically benign. Pancreas: Unremarkable. Adrenal glands: Unremarkable. Kidneys: Right kidney- No renal stones. No hydronephrosis. Left kidney- No renal stones. No hydronephrosis. Distal esophagus/stomach: Unremarkable. Small bowel loops: Normal caliber and wall thickness. Colon: Normal caliber and wall thickness. Normal RLQ appendix. Nodes: No enlarged nodes. Peritoneum: No ascites. No free air. Urinary bladder: Unremarkable. Uterus: Unremarkable. Adnexa: No masses. Prominent left gonadal veins. Bones: No acute bony abnormality. Soft tissues: Unremarkable. IMPRESSION: 1. No aortoiliac inflow disease. 2. Bilateral severe distal SFA stenoses, left side worse. 3. Tibioperoneal runoff arteries cannot be assessed given small size and poor opacification. Can consider arterial duplex if further characterization desired. Reviewed, dictated and finalized at location R. ETING GRAPHICS SPECIALIST IMPRESSION: 1. No aortoiliac inflow disease. 2. Bilateral severe distal SFA stenoses, left side worse. 3. Tibioperoneal runoff arteries cannot be assessed given small size and poor opacification. Can consider arterial duplex if further characterization desired .
--- NOTE | ~2025-09-14 | US_ITS ---
US arterial duplex [facility] 09/14/2025 10:32 Indication: Poor perfusion of the lower extremities Procedure: Bilateral lower extremity arterial duplex Doppler Comparison: No prior studies for comparison. Findings: There is normal biphasic and triphasic flow throughout the lower extremity arteries bilaterally. Right lower extremity: A velocity gradient of 46 cm/s is identified below the distal superficial femoral artery. Left lower extremity: A velocity gradient of 61 cm/s is identified below the distal superficial femoral artery. Despite the noted mild velocity gradients distally there is no evidence of hemodynamic significant stenosis or occlusion. No evidence for aneurysm or incidental soft tissue abnormalities. Impression: 1: No hemodynamically significant stenosis or occlusion is identified. 2: Mild velocity gradients below the superficial femoral arteries bilaterally without associated Doppler evidence of significant stenosis. Reviewed, dictated and finalized at location I. CAL RECORD TRANSCRIBER Impression: 1: No hemodynamically significant stenosis or occlusion is identified. 2: Mild velocity gradients below the superficial femoral arteries bilaterally without associated Doppler evidence of significant stenosis.
[2025-09-14 07:56] LABS: Hematocrit 38.4 % (37.0-47.0); Hemoglobin 12.8 g/dL (12.0-15.0); Immature Granulocyte Percent A 0.4 % (0-0.5); Lymphocytes Absolute Auto 1.81 K/mm3 (0.9-3.2); Mean Corpuscular HGB Conc 33.3 g/dl (32-36); Mean Corpuscular Hemoglobin 29.8 pg (26-34); Mean Corpuscular Volume 89.5 fl (80-100); Nucleated Red Blood Cells Absolute Auto 0.000 K/mm3 (0.0-0.012); Nucleated Red Blood Cells Perc 0.0 % (0.0-0.2); Platelet Count Result 256 k/mm3 (150-375); Red Blood Count 4.29 M/mm3 (4.2-5.4); White Blood Count 9.5 K/mm3 (4.5-10.0)
[2025-09-14 08:14] LABS: Alanine Aminotransferase 45 U/L (6-35); Albumin Level 4.6 g/dL (3.5-5.1); Alkaline Phosphatase 79 U/L (38-126); Anion Gap 7 mmol/L (4-12); Aspartate Amino Transferase 37 U/L (14-36); Bilirubin,Total 0.4 mg/dL (0.2-1.3); Blood Urea Nitrogen 16 mg/dL (7-17); Calcium 9.7 mg/dL (8.4-10.2); Carbon Dioxide 24 mmol/L (22-30); Chloride 108 mmol/L (98-107); Estimated CRCL calculation 56 ml/min; Estimated Glomerular Filt Rate > 60; Glucose 108 mg/dL (65-110); Potassium 4.3 mmol/L (3.4-5.0); Sodium 139 mmol/L (137-145); Total Protein 7.6 g/dL (6.3-8.2)
[2025-09-14 08:15] LABS: Estimated CRCL calculation 52 ml/min; Estimated Glomerular Filt Rate > 60
[2025-09-14 08:19] LABS: INR 1.0; Prothrombin Time 13.0 Seconds (11.1-14.7)
[2025-09-14 08:20] LABS: Partial Thromboplastin Time 23.4 Seconds (22.3-36.8)
[2025-09-14] MEDS: MORPHINE SULFATE (*CRX) 4 MG/ML INJ 2 MG IV PUSH (08:24)
--- NOTE | 2025-09-14 08:34 | ED.GENADULT ---
HPI - General Adult General Chief complaint: Unspecified Stated complaint: R hip; L foot Time Seen by Provider: 09/14/25 07:21 History of Present Illness HPI narrative: Patient was scheduled for hip surgery, during preop about 3 weeks ago, she started having some pain to her toes, was told that she had very poor circulation to her feet and to follow up with her doctor for this. Since then she has continued to notice that her feet are cold and painful. Came in today for her scheduled hip surgery and anesthesia canceled her case Related Data Home Medications ?Medication ?Instructions ?Recorded ?Confirmed ?Last Taken ?Type multivitamin (Daily Multi-Vitamin 1 tablet PO DAILY 09/01/25 09/14/25 09/11/25 History tablet) Allergies Allergy/AdvReac Type Severity Reaction Status Date / Time No Known Allergies Allergy Verified 09/14/25 06:52 Review of Systems Review of Systems: All systems reviewed & are unremarkable except as noted in HPI and below PMFSH Past Medical History Medical History Osteopenia Hypertension Surgical History Surgical History Previous section x2 Family History Family History Father Lung cancer Emphysema of lung Sibling Breast cancer Dx age 58 Mother Depression Social History Social History (Updated 07/23/25 @ 10:43 by Kerrie Pickett CMA) Smoking packs per day: 1.5 Smoking cigarettes per day: 30.0 Years smoked: 15 Smoking pack-years: 22.50 Smoking status: Former smoker Tobacco type: cigarettes Smoking end date: 10/15/98 Additional smoking assessment comments: Denies any nicotine in system today Alcohol intake: never Alcohol use details: 1-2 per month Substance use: current Substance use type: marijuana Other substance usage details: uses it daily smokes it and eats it daily Lack of Transportation: No Lack of Food: Never True Current Housing: I Have Housing Concerned About Future Housing: No Difficulty Paying Gas/Electric Bills: No Difficulty Paying for Meds: No Currently Unemployed: No Education: High School Diploma/GED Difficulty w/ Childcare or Family Care: No Living arrangements: with family Additional living arrangements comments: Daughter Chanel Gender identity (if verbalized by the patient): Female Spiritual care concerns: No Agree to blood products: Yes Exam Narrative: EXAMINATION OF ORGAN SYSTEMS/BODY AREAS: Constitutional: Vital signs per nursing GENERAL:[No acute distress, non-toxic appearing.] HEAD: Normal with no signs of head trauma. EYES: EOMI, conjunctiva normal ENT: Hearing grossly intact LUNGS: Nonlabored breathing. HEART: [Regular rate and rhythm]. Difficult to palpate pulses both feet, poor cap refill in all toes ABD: [Soft], [nontender to palpation] EXT: Normal range of motion SKIN: [No rashes or lesions.] NEURO: [Alert and oriented x 3. No gross focal sensory or strength deficits.] PSYCH: Normal affect Course Vital Signs Vital signs: Vital Signs Pulse Oximetry 100 09/14/25 07:14 Temperature 97.9 F 09/14/25 07:19 Pulse Rate 94 09/14/25 11:55 Respiratory Rate 20 09/14/25 11:55 Blood Pressure 140/68 09/14/25 11:55 Pulse Oximetry 100 09/14/25 11:55 Oxygen Delivery Room Air 09/14/25 07:19 Medical Decision Making MDM Narrative Medical decision making narrative: Patient presenting here with several weeks now of cold feet and toes, causing anesthesia to cancel her surgery. I had difficulty palpating pulses, though her feet overall did appear warm. CTA with runoff showing some stenosis, but overall normal flow and popliteals, difficult to assess more distal than that, arterial ultrasounds obtained showing decent flow. Case discussed with vascular surgery at [facility] Dr Olivas, he recommends outpatient management, does not feel transfer warranted, which I do agree with. Discussed with patient and family, they would like follow-up at [place] so this is provided and return precautions discussed. Vital Signs Vital Signs: Vital Signs Pulse Oximetry 100 09/14/25 07:14 Temperature 97.9 F 09/14/25 07:19 Pulse Rate 94 09/14/25 11:55 Respiratory Rate 20 09/14/25 11:55 Blood Pressure 140/68 09/14/25 11:55 Pulse Oximetry 100 09/14/25 11:55 Oxygen Delivery Room Air 09/14/25 07:19 Lab Data 09/14/25 07:51 09/14/25 08:03 Labs: Lab Results 09/14/25 09/14/25 09/14/25 Range/Units 07:51 08:03 10:53 WBC 9.5 (4.5-10.0) K/mm3 RBC 4.29 (4.2-5.4) M/mm3 Hgb 12.8 (12.0-15.0) g/dL Hct 38.4 (37.0-47.0) % MCV 89.5 (80-100) fl MCH 29.8 (26-34) pg MCHC 33.3 (32-36) g/dl RDW 14.8 H (11.5-14.5) % Plt Count 256 (150-375) k/mm3 MPV 10.9 H (7.4-10.4) fl Immature Gran % (Auto) 0.4 (0-0.5) % Neut % (Auto) 74.0 H (45.5-73.1) % Lymph % (Auto) 19.0 (18.3-44.2) % [place] % (Auto) 5.1 (2.6-8.5) % Eos % (Auto) 0.9 (0-4.4) % Baso % (Auto) 0.6 (0.2-1.2) % Lymph # (Auto) 1.81 (0.9-3.2) K/mm3 [place] # (Auto) 0.5 (0.1-0.6) K/mm3 Eos # (Auto) 0.1 (0-0.3) K/mm3 Baso # (Auto) 0.1 (0.0-0.1) K/mm3 Abs Immat Gran (auto) 0.04 H (0.00-0.031) K/mm3 Absolute Neuts (auto) 7.1 H (1.3-6.7) K/mm3 Absolute Nucleated RBC 0.000 (0.0-0.012) K/mm3 Nucleated RBC % 0.0 (0.0-0.2) % PT 13.0 (11.1-14.7) Seconds INR 1.0 APTT 23.4 (22.3-36.8) Seconds Sodium 139 (137-145) mmol/L Potassium 4.3 (3.4-5.0) mmol/L Chloride 108 H (98-107) mmol/L Carbon Dioxide 24 (22-30) mmol/L Anion Gap 7 (4-12) mmol/L BUN 16 (7-17) mg/dL Creatinine 0.82 0.90 (0.7-1.0) mg/dL Estim Creat Clear Calc 56 52 ml/min Estimated GFR > 60 > 60 (59 - ) Glucose 108 (65-110) mg/dL Lactic Acid (0.7-2.0) mmol/L Calcium 9.7 (8.4-10.2) mg/dL Total Bilirubin 0.4 (0.2-1.3) mg/dL AST 37 H (14-36) U/L ALT 45 H (6-35) U/L Alkaline Phosphatase 79 (38-126) U/L Total Protein 7.6 (6.3-8.2) g/dL Albumin 4.6 (3.5-5.1) g/dL Urine Color Yellow (Yellow) Urine Appearance Clear (Clear) Urine pH 6.5 (5.0-9.0) Ur Specific [place] > 1.045 H (1.001-1.035) Urine Protein Negative (Negative) mg/dL Urine Glucose (UA) Negative (Negative) mg/dL Urine Ketones Trace H (Negative) mg/dL Ur Blood (Man) Non-hemolyzed trace H (Negative) Urine Nitrate Negative (Negative) Urine Bilirubin Negative (Negative) Urine Urobilinogen 0.2 (<2.0) mg/dL Leukocyte Esterase Rfl Negative (Negative) SONI/UL Urine RBC 3-5 H (0-2) /hpf Urine WBC 0-5 (0-3) /hpf Ur Squamous Epith Cells None seen (Few) /hpf Urine Bacteria None seen /hpf Urine Casts 0-2 09/14/25 Range/Units 11:04 WBC (4.5-10.0) K/mm3 RBC (4.2-5.4) M/mm3 Hgb (12.0-15.0) g/dL Hct (37.0-47.0) % MCV (80-100) fl MCH (26-34) pg MCHC (32-36) g/dl RDW (11.5-14.5) % Plt Count (150-375) k/mm3 MPV (7.4-10.4) fl Immature Gran % (Auto) (0-0.5) % Neut % (Auto) (45.5-73.1) % Lymph % (Auto) (18.3-44.2) % [place] % (Auto) (2.6-8.5) % Eos % (Auto) (0-4.4) % Baso % (Auto) (0.2-1.2) % Lymph # (Auto) (0.9-3.2) K/mm3 [place] # (Auto) (0.1-0.6) K/mm3 Eos # (Auto) (0-0.3) K/mm3 Baso # (Auto) (0.0-0.1) K/mm3 Abs Immat Gran (auto) (0.00-0.031) K/mm3 Absolute Neuts (auto) (1.3-6.7) K/mm3 Absolute Nucleated RBC (0.0-0.012) K/mm3 Nucleated RBC % (0.0-0.2) % PT (11.1-14.7) Seconds INR APTT (22.3-36.8) Seconds Sodium (137-145) mmol/L Potassium (3.4-5.0) mmol/L Chloride (98-107) mmol/L Carbon Dioxide (22-30) mmol/L Anion Gap (4-12) mmol/L BUN (7-17) mg/dL Creatinine (0.7-1.0) mg/dL Estim Creat Clear Calc ml/min Estimated GFR (59 - ) Glucose (65-110) mg/dL Lactic Acid 1.1 (0.7-2.0) mmol/L Calcium (8.4-10.2) mg/dL Total Bilirubin (0.2-1.3) mg/dL AST (14-36) U/L ALT (6-35) U/L Alkaline Phosphatase (38-126) U/L Total Protein (6.3-8.2) g/dL Albumin (3.5-5.1) g/dL Urine Color (Yellow) Urine Appearance (Clear) Urine pH (5.0-9.0) Ur Specific [place] (1.001-1.035) Urine Protein (Negative) mg/dL Urine Glucose (UA) (Negative) mg/dL Urine Ketones (Negative) mg/dL Ur Blood (Man) (Negative) Urine Nitrate (Negative) Urine Bilirubin (Negative) Urine Urobilinogen (<2.0) mg/dL Leukocyte Esterase Rfl (Negative) SONI/UL Urine RBC (0-2) /hpf Urine WBC (0-3) /hpf Ur Squamous Epith Cells (Few) /hpf Urine Bacteria /hpf Urine Casts Discharge Plan Discharge Clinical Impression: Cold extremities Patient Disposition: Home Condition: Stable Additional Instructions: Please call [phone] follow up with vascular surgery at [facility]; bring your disc with your imaging results with you to your appointment. Make sure to keep your extremities warm. If you notice any worsening symptoms, please go to [place] or [facility] or any ER with vascular surgery. Patient Language: Nepali Prescriptions: No Action acetaminophen 500 mg capsule 1,000 mg PO Q6H PRN (Reason: pain) Qty: 240 0RF multivitamin [Daily Multi-Vitamin] Tablet 1 tablet PO DAILY buspirone 7.5 mg tablet 7.5 mg PO DAILY Qty: 90 1RF lisinopril 20 mg tablet 20 mg PO DAILY Qty: 90 1RF Follow-up/Referrals: Carlos Eduardo Jesus MD [Primary Care Provider, Family Practice]
--- OUTSIDE RECORDS SUMMARY | 2025-09-14 08:55 | XMS_ITS | Encounter Summary ---
Author Organization [facility] Address [address] [place] [address] Phone Care Team Providers Care Heavy Equipment Operator/Paver Name Role Phone Carlos Eduardo Jesus MD Primary Care Provider [phone] Reason for Visit * Reason Onset Date Comments Advice Only 09/13/2025 Encounter Details Date Type Department Care Team (Late st Contact Info) Description 09/13/2025 Telephone [facility] Call Center [address] [place] [id number] Carlos Eduardo Jesus MD [address] [facility] [place] [address] Advice Only Social History Tobacco Use Types Packs/Day Years [...] encounter Miscellaneous Notes * Telephone Encounter - Kirstin Villa RN - 09/13/2025 6:10 PM CST Situation: missed call Background: Patient contacting [facility] Primary Care - [place] Assessment: Missed call from [facility] Care regarding results Recommendation: Transferred to [facility] ACQUISITION MANAGER documented in this encounter Plan of Treatment Not on file documented as of this encounter Visit Diagnoses Not on filedocumented in this encounter Care Teams Heavy Equipment Operator/Paver Relationship Specialty Start Date End Date Carlos Eduardo Jesus MD PCP - General Family Medicine 05/23/22 documented as of this encounter
--- OUTSIDE RECORDS SUMMARY | 2025-09-14 08:55 | XMS_ITS | Clinical Summary ---
Author Organization [facility] Address [address] [place] [address] Phone Care Team Providers Care Narrow Gauge Operator Name Role Phone Carlos Eduardo Jesus MD Primary Care Provider Allergies No known active allergies Medications conjugated [...] Care Team Description 09/13/2025 Telephone [facility] Call Center [address] [place] [id number] Carlos Eduardo Jesus MD Advice Only 09/12/2025 [facility] [address] [place] [address] Robson Clarke, PAC POCT UA AUTOMATED W/O MICRO, CULTURE, URINE 09/11/2025 3:30 PM DATABASE OPERATOR [facility]gent [facility] [address] [place] [address] Kristina Reina, ADVERTISING SALES EXECUTIVE, DEAN OF ADMISSIONS Acute cystitis with hematuria (Primary Dx); Dysuria; [...] Comments Blood Pressure 134/68 09/11/2025 3:37 PM DATABASE OPERATOR Pulse 93 09/11/2025 3:37 PM DATABASE OPERATOR Temperature 36.8 C (98.3 F) 09/11/2025 3:37 PM DATABASE OPERATOR Respiratory Rate 16 09/11/2025 3:37 PM DATABASE OPERATOR Oxygen Saturation 99% 09/11/2025 3:37 PM DATABASE OPERATOR Inhaled Oxygen Concentration - - Weight 72.6 kg (160 lb) 12/12/2024 9:26 AM DATABASE OPERATOR Height 162.6 cm (5' 4) 12/12/2024 9:26 AM DATABASE OPERATOR Body Mass Index 27.46 12/12/2024 9:26 AM DATABASE OPERATOR Plan of Treatment Health Maintenance Due Date [...] Comments CULTURE, URINE Routine 09/11/2025 3:49 PM DATABASE OPERATOR Dysuria POCT UA AUTOMATED W/O MICRO Routine 09/11/2025 3:33 PM DATABASE OPERATOR Dysuria from Last 3 Months Results * CULTURE, URINE (09/11/2025 3:49 PM DATABASE OPERATOR) Pathologist [facility] CULTURE RESULTS KLEBSIELLA PNEUMONIAE 09/13/2025 3:20 PM DATABASE OPERATOR [facility] Culture URINE SPECIMEN OBTAINED BY CLEAN CATCH PROCEDURE / Unknown Non-Phlebotomy Collection / Unknown 09/11/2025 3:49 PM DATABASE OPERATOR 09/11/2025 3:49 PM DATABASE OPERATOR Narrative Organism Antibiotic Method Susceptibility Klebsiella pneumoniae [...] II <=20 mcg/ml: Susceptible us Kristina Reina ADVERTISING SALES EXECUTIVE, DEAN OF ADMISSIONS MICROBIOLOGY - GENE RAL ORDERABLES Final Result Performing Organization Address City/State/[facility] Co de Phone Number [facility] [address] [place] [address], [place] * (ABNORMAL) POCT UA AUTOMATED W/O MICRO (09/11/2025 3:33 PM DATABASE OPERATOR) POC UA SPECIFIC GRAVITY 1.025 URINE PH [...] URINE CLARITY Clear Urine 09/11/2025 3:33 PM DATABASE OPERATOR us Kristina Reina ADVERTISING SALES EXECUTIVE, DEAN OF ADMISSIONS POINT OF CARE TESTI NG (MANUAL) Final Result from Last 3 Months Care Teams Narrow Gauge Operator Relationship Specialty Start Date End Date Carlos Eduardo Jesus MD PCP - General Family Medicine 05/23/22
--- OUTSIDE RECORDS SUMMARY | 2025-09-14 08:55 | XMS_ITS | Encounter Summary ---
Author Organization [facility] Address [address] [place] [address] Care Team Providers Care Medical Director/Head Team Physician Name Role Phone Carlos Eduardo Jesus MD Primary Care Provider [phone] Carlos Eduardo Jesus MD Primary Care Provider [phone] Carlos Eduardo Jesus MD Unavailable [phone] Reason for Visit * Reason Onset Date Comments Appointment Reminder Call 07/25/2022 Confir med Encounter Details Date Type Department Care Team (Late st Contact Info) Description 07/25/2022 Telephone [facility] [address] [place] [phone] Yumiko Carrasco RT Appointment Reminder Call (Confirmed ) Social History Tobacco Use Types Packs/Day Years Used Date Smoking Tobacco: Former Smokeless Tobacco: Never Alcohol Use Standard Drinks/Week Comments No 0 (1 standard drink = 0.6 oz pur e alcohol) Comments No Sex and Gender Information Value Date Recorded Sex Assigned at Not on file Legal Sex Female 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
--- OUTSIDE RECORDS SUMMARY | 2025-09-14 08:55 | XMS_ITS | Clinical Summary ---
Author Organization [facility] Address [address] [place] [address] Care Team Providers Care Child Nurse Name Role Phone Carlos Eduardo Jesus MD Primary Care Provider [phone] Carlos Eduardo Jesus MD Unavailable [phone] Allergies No known active allergies Medications diphenhydrAMINE (diphenhydrAMIN E) 25 mg capsule Take 1 tablet/capsu le (25 mg total) by mouth every 6 (six) hours as needed for itching 30 capsule 03/16/2019 Active Active Problems Problem Noted Date Diagnosed Date Encounter for screening colonoscopy 12/01/2019 Overview (12/01/2019): Added automatically from request for surgery [id number] History of colon polyps 12/01/2019 Overview (12/01/2019): Added automatically from request for surgery [id number] Pharyngitis 04/09/2015 Overview (01/18/2017): Pharyngitis Immunizations Immunization [...] on file Legal Sex Female 12:45 AM INTRAVENOUS THERAPY NURSE Gender Identity Not on file Sexual Orientation [...] Read Routine (OP Routine) 09/12/2023 4:39 PM INTRAVENOUS THERAPY NURSE Screening mammogram, encounter for COLONOSCOPY 03/22/2020 8:21 AM CDT from Last 3 Months or Most Recently Relevant to Health Maintenance Results * Screening Mammogram Bilateral W Billie (09/12/2023 4:39 PM INTRAVENOUS THERAPY NURSE) Anatomical Region Laterality Modality Breast Bilateral Mammography 09/12/2023 4:42 PM INTRAVENOUS THERAPY NURSE Impressions 09/12/2023 4:42 PM INTRAVENOUS THERAPY NURSE There is no mammographic evidence of malignancy. A 1 year screening mammogram is recommended. BI-RADS: 1 - Negative. The patient has been or will be contacted. The patient will be entered into a reminder system with a target due date of 1 year for her next mammogram. Electronically signed by: Monico Mathew M.D. Narrative 09/12/2023 4:42 PM INTRAVENOUS THERAPY NURSE EXAMINATION: SCREENING MAMMOGRAM BILATERAL W BILLIE ORDERING [...] Rodriguez MD - 03/22/2020 8:[address] [facility] Patient Name: Joshua Haney Procedure Date: 03/22/2020 8:21 AM Date of : 1960 Admit Type: Outpatient Age: 59 Gender: Female Attending MD: Zuly Rodriguez M.D. Room: [facility] ENDOSCOPY ROOM 1 Note Status: Finalized Patient [...] passed under direct vision.The Pediatric Colonoscope [id number]-[id number] was introduced through the anus and advanced [...] 8:21 AM Procedure Code(s): --- Professional --- 49392, Colonoscopy, flexible; with biopsy, single or multiple 50142, 59, Destruction of internal hemorrhoid(s) by thermal energy(eg, infrared coagulation, cautery, radiofrequency) Diagnosis Code(s): --- Professional --- Z86.010, Personal history of colonic polyps K64.8, Other hemorrhoids D12.3, Benign neoplasm of transverse colon (hepatic flexure orsplenic flexure) D12.5, Benign neoplasm of sigmoid colon CPT copyright 2017 [employer]. All rights reserved. The codes documented in this report are preliminary and upon home care manager rn reviewmay be revised to meet current compliance requirements. Recognized by the [employer] Society for G[employer]intestinal [employer] for promoting quality in endoscopy Zuly Rodriguez MD ENDOSCOPY PROCEDURES Final Result from Last 3 Months or Most Recently Relevant to Health Maintenance Insurance [facility] [employer] OOS Member Subscriber Plan / Payer (Ef fective 2019-Present) Name:Joshua Haney Relation to Subscriber:Self Name:Joshua Haney Payer ID:[id number] ([facility]) Type:loanDepot Address: [address] OPTIONS PPO [facility] HMO/PPO Address: [address] [address] [facility] CHOICE OOS BLUE ACCESS OOS Advance Directives For more information, please contact: [phone] * Full Code (Latest Code Status on File) Date Activated Date Inactivated Comments 03/22/2020 7:47 AM 03/22/2020 2:20 PM * Full Code Date Activated Date Inactivated Comments 03/22/2020 7:47 AM 03/22/2020 7:47 AM Care Teams Child Nurse Relationship Specialty Start Date End Date Carlos Eduardo Jesus MD PCP - General Family Practice 08/24/22 Carlos Eduardo Jesus MD 08/24/22
--- OUTSIDE RECORDS SUMMARY | 2025-09-14 08:55 | XMS_ITS | Encounter Summary ---
Author Organization [facility] Address [address] [place] [address] Phone Care Team Providers Care Manager Government Name Role Phone Carlos Eduardo Jesus MD Primary Care Provider Encounter Details Date Type Department Care Team (Late st Contact Info) Description 09/12/2025 Results Follow-Up [facility] - [address] [phone] Robson Clarke, KENDRA [address] [place] [id number] POCT UA AUTOMATED W/O MICRO, CULTURE, URINE [...] PM CST Situation: Results Background: Patient contacting [facility] Assessment: Patient was seen at 09/11/2025 and [...] to taking last dose of Bactrim tonight. NE WATER TENDER documented in this encounter Plan of Treatment Not on file documented as of this encounter Visit Diagnoses Not on filedocumented in this encounter Care Teams Manager Government Relationship Specialty Start Date End Date Carlos Eduardo Jesus MD PCP - General Family Medicine 05/23/22 documented as of this encounter
[2025-09-14 11:13] LABS: Add Urine Microscopic? NO; Appearance Urine Clear (Clear); Glucose Urine UA Negative (Negative); Leukocyte Esterase Ur Negative LEU/UL (Negative); Nitrate Urine Negative (Negative); Non Pathogenic Casts 0-2; Specific Grav Ur > 1.045 (1.001-1.035)
== END 2025-09-14 11:56 | disposition home or self-care (01) ==
PROVIDERS: Emergency Provider Emergency Medicine; PCP Family Medicine
DX: M79.675 Pain in left toe(s) (principal); M79.674 Pain in right toe(s); I10 Essential (primary) hypertension
CPT/HCPCS: 36415; 75635; 80053; 81003; 83605; 85025; 85610; 85730; 93925; 96374; 99284; J2270; Q9967